=== PATIENT | female | born 1955 | race Caucasian/White ===

== ENCOUNTER 2019-04-15 16:11 | Emergency (ER) | payer SELFPAY ==
[2019-04-15 16:21] VITALS: BP 147/120
--- NOTE | 2019-04-15 16:23 | ED Physician Documentation ---
PD HPI UPPER EXT INJURY - Stated complaint Stated Complaint: L MIDDLE FINGER LAC - Chief complaint Chief Complaint: Laceration - History obtained from History obtained from: Patient, Family - History of Present Illness Location: Left, Finger (Middle) Type of injury: Laceration Where injury occurred: Home Timing - onset: How many days ago (9) Timing - duration: Days (9) Pain level now: 0 Recently seen: Not recently seen - Additonal information Additional information: Is a 64-year-old Hebrew-speaking woman who presents with her Daughter who interprets for us. She was cutting a pumpkin last week and stabbed through the pumpkin cut the finger pad on her left middle finger. Her daughter kept telling her she should come in and have it stitched but the patient refused at the time. She is been cleaning with hydrogen peroxide and applying antibiotic ointment and keeping a Band-Aid on it. She has very minimal pain. It has stopped bleeding. She is just concerned that it might be infected. She is uncertain when her last tetanus vaccine was. Review of Systems Constitutional: denies: Fever Skin: reports: Laceration (s) PD PAST MEDICAL HISTORY - Allergies Allergies/Adverse Reactions: Allergies Allergy/AdvReac Type Severity Reaction Status Date / Time No Known Drug Allergies Allergy Verified 04/15/19 16:21 PD ED PE NORMAL - Vitals Vital signs reviewed: Yes - General General: Alert and oriented X 3, No acute distress, Well developed/nourished - Derm Derm: Normal color, Warm and dry, Other (There is an approximate 2 1-1/2 to 2 cm laceration through the pad of the left middle finger. This has heaped up and is bulging open by a few millimeters but you can see fresh skin already closing over the wound. The skin is slightly macerated from a wet bandage having been on it but there is no erythema or purulent drainage. No sign of infection.) Results - Vitals Vitals: Vital Signs - 24 hr 04/15/19 16:20 Temperature 36.8 C Heart Rate 76 Respiratory 18 Rate Blood Pressure 147/120 H O2 Saturation 100 Oxygen O2 Source Room air PD MEDICAL DECISION MAKING - ED course Complexity details: d/w patient, d/w family ED course: Patient was reassured that this actually looks like it is healing quite well without any sign of infection. I would like her to keep it a little more dry so at night she can leave it open. Working to give her some sort of a splint just to help protect it from breaking open that she can remove and I have encouraged her not to leave any can a wet bandage on it. She can continue a light layer of antibiotic ointment and this should heal spontaneously probably within the next couple of weeks. We discussed that there will always be a little deformity and it may be more sensitive and susceptible to cold in the cold weather. She states understanding. Departure - Departure Disposition: 01 Home, Self Care Clinical Impression: Laceration Condition: Good Instructions: ED Laceration Amputation Finger Tip Open Tx Follow-Up: [facility] [Provider Group] Comments: Continue to wash this daily. May apply a thin layer of antibiotic ointment. It is really critical that you not leave a wet bandage sitting on it. You may leave it open to air dry at night. This should be healed over with new skin within another 2 weeks but will always be a little misshapen and more susceptible to the cold and more sensitive than your other finger. Follow-up for reevaluation if you have concerns about how it is healing.
[2019-04-15] MEDS ORDERED: TETANUS/DIPHTHERIA/PERTUSSIS 0.5 ML SYRINGE IM ONE (16:46)
== END 2019-04-15 17:11 | disposition home or self-care (01) ==
LOC: ED 16:11
DX: S61.213A Laceration without foreign body of left middle finger without damage to nail, initial encounter (principal); W26.0XXA Contact with knife, initial encounter; Y93.G1 Activity, food preparation and clean up; Y92.009 Unspecified place in unspecified non-institutional (private) residence as the place of occurrence of the external cause; Z23 Encounter for immunization
CPT/HCPCS: 90471; 99282